=== PATIENT | female | born 1980 ===

== ENCOUNTER 2024-04-18 06:17 | Day surgery (SDC) | payer OTHER ==
[2024-04-18] MEDS ORDERED: DIPHENHYDRAMINE HCL 50 MG/ML VIAL 1ML IV ONE (10:00)
[2024-04-18] MEDS ORDERED: MIDAZOLAM HCL 2 MG/2 ML VIAL IV ONE (10:00)
[2024-04-18] MEDS ORDERED: fentaNYL CITRATE 50 MCG/ML AMPUL IV PUSH ONE (10:00)
== END 2024-04-18 11:15 | disposition home or self-care (01) ==
LOC: AMB-ENDOS 06:17
PROVIDERS: ATTEND Internal Medicine
DX: D12.4 Benign neoplasm of descending colon (principal); K63.5 Polyp of colon